=== PATIENT | female | born 1960 | race Caucasian/White ===

== ENCOUNTER 2018-07-01 00:07 | Emergency (ER) | payer OTHER ==
[~2018-07-01] VITALS: Ht 157.5 cm; Wt 85.7 kg
[~2018-07-01 00:07] MED LIST: ALEVE220 M1 PO; ASPIRIN EC81 MG PO; ATORVASTATIN CA20 MG PO; BACTRIM DS TAB1 EACH PO; CLINDAMYCIN HC150 MG PO; CYCLOBENZAPRINE10 MG PO; CYMBALTA30 MG PO; GLIPIZIDE10 MG PO; JANUVIA100 MG PO; LINZESS PO; TRAMADOL HCL100 MG PO
--- NOTE | 2018-07-01 01:00 | Diagnostic Imaging Report ---
EXAM: KNEE LEFT THREE VIEWS, AP, lateral and oblique INDICATION: Left knee pain without trauma COMPARISON: None FINDINGS: BONES: No acute fractures. JOINTS: No malalignment. Tricompartmental degenerative changes predominantly of the medial and patellofemoral compartments. SOFT TISSUES: Coarse calcification superior to the patella. IMPRESSION: Moderate to severe degenerative changes of the left knee. Signed by: Dr. Radha Wing M.D. on 07/01/2018 12:57 AM
== END 2018-07-01 01:30 | disposition home or self-care (01) ==
LOC: ER 00:07
DX: M25.562 Pain in left knee (principal); M17.12 Unilateral primary osteoarthritis, left knee; Z87.19 Personal history of other diseases of the digestive system

== ENCOUNTER 2021-09-04 14:42 | Inpatient (IN) | payer SELFPAY ==
[~2021-09-04] VITALS: Ht 162.6 cm; Wt 82.6 kg
[2021-09-04] MEDS ORDERED: Vancomycin IV 1 GM in SODIUM CHLORIDE 0.9% 250ML 250 ML IV ONE (18:30)
[2021-09-04] MEDS ORDERED: Vancomycin IV 1 GM VIAL ONE ×2 (18:49)
[2021-09-04] MEDS ORDERED: SODIUM CHLORIDE 0.9% 250ML 250 ML ONE (18:49)
[2021-09-04] MEDS ORDERED: PIPERACILLIN/TAZOBACTAM 3.375 GM VIAL ONE (18:49)
[2021-09-04] MEDS ORDERED: SODIUM CHLORIDE 0.9% 100 ML ONE (18:50)
[2021-09-04] MEDS ORDERED: DEXTROSE 50% SYRINGE 50 ML IV PRN (19:00)
[2021-09-04] MEDS ORDERED: HYDROCODONE/APAP 5MG-325MG TAB PO ONE (19:00)
[2021-09-04] MEDS ORDERED: SODIUM CHLORIDE FLUSH 10 ML SYR INJ PRN (19:00)
[2021-09-04] MEDS: PIPERACILLIN/TAZOBACTAM 3.375 GM in SODIUM CHLORIDE 0.9% 50ML 50 ML IV SCH (19:01)
[2021-09-04 21:00] VITALS: BP 126/75
[2021-09-04] MEDS: INSULIN LISPRO 100 UNIT/1 ML 3ML VIAL SQ SCH (21:40)
[2021-09-04] MEDS: HYDROMORPHONE 1MG/1ML INJ IV PRN (21:40)
[2021-09-05] VITALS (8 sets, daily range): BP systolic 102–138; BP diastolic 63–78
[2021-09-05] MEDS: HYDROMORPHONE 1MG/1ML INJ IV PRN ×7 (00:45→19:33)
[2021-09-05] MEDS ORDERED: SODIUM CHLORIDE 0.9% 250ML 250 ML ONE (00:51)
[2021-09-05] MEDS ORDERED: INFLUENZA VIRUS VAC SPLIT INJ 0.5 ML SYR IM SCH (01:11)
[2021-09-05] MEDS: PIPERACILLIN/TAZOBACTAM 3.375 GM in SODIUM CHLORIDE 0.9% 50ML 50 ML IV SCH ×4 (01:13→20:30)
[2021-09-05] MEDS: HYDROCODONE/APAP 5MG-325MG TAB PO PRN ×3 (02:00→18:12)
[2021-09-05 06:53] LABS: ALBUMIN/GLOBULIN RATIO 0.8 (0.8-2.0); ANION GAP 15.3 mmol/L (8-16); BASOPHILS # (AUTO) 0.1 (0.0-0.1); BASOPHILS % 0.8 % (0.0-1.0); CALCIUM 9.2 mg/dL (8.4-10.2); CHOL/HDL RATIO 3.6 (3.0-3.6); CREATININE, SERUM 0.87 mg/dL (0.57-1.11); EOSINOPHILS # (AUTO) 0.1 (0.0-0.4); EOSINOPHILS % 2.3 % (0.0-6.0); HEMATOCRIT 38.6 % (34.2-44.1); HEMOGLOBIN 12.5 g/dL (12.0-16.0); LYMPHOCYTES # (AUTO) 2.8 (1.0-3.2); LYMPHOCYTES % 45.9 % (18.0-39.1); MAGNESIUM 1.6 MG/DL (1.3-2.1); MEAN CORPUSCULAR HEMOGLOBIN 29.6 pg (28-32); MEAN CORPUSCULAR HGB CONC 32.4 g/dL (31-35); MEAN CORPUSCULAR VOLUME 91.3 fL (81-99); MONOCYTES # (AUTO) 0.7 (0.2-0.8); MONOCYTES % 11.9 % (4.4-11.3); NEUTROPHILS # (AUTO) 2.4 (2.1-6.9); NEUTROPHILS % 38.8 % (38.7-80.0); PHOSPHORUS 5.1 MG/DL (2.3-4.7); PLATELET COUNT 225 x10e3/uL (140-360); POTASSIUM 4.3 mmol/L (3.5-5.1); RED BLOOD COUNT 4.23 x10e6/uL (3.6-5.1); RED CELL DISTRIBUTION WIDTH 12.7 % (11.7-14.4)
[2021-09-05 07:18] LABS: THYROID STIMULATING HORMONE 1.741 uIU/mL (0.350-4.940)
[2021-09-05] MEDS: INSULIN LISPRO 100 UNIT/1 ML 3ML VIAL SQ SCH ×4 (07:42→20:31)
[2021-09-05] MEDS: Vancomycin IV 500 MG in SODIUM CHLORIDE 0.9% 100 ML IV SCH ×2 (10:22→21:48)
[2021-09-05] MEDS: FAMOTIDINE 20 MG TAB PO SCH ×2 (13:15→14:45)
[2021-09-05] MEDS ORDERED: GADOBENATE DIMEGLUMINE 1 ML IV ONE (13:39)
[2021-09-05] MEDS: ATORVASTATIN 40 MG TAB PO SCH (20:40)
[2021-09-05] MEDS: ENOXAPARIN 30 MG/0.3 ML SYR SC SCH (20:40)
[2021-09-06] VITALS (8 sets, daily range): BP systolic 113–141; BP diastolic 65–84
[2021-09-06] MEDS: PIPERACILLIN/TAZOBACTAM 3.375 GM in SODIUM CHLORIDE 0.9% 50ML 50 ML IV SCH ×3 (01:54→14:36)
[2021-09-06] MEDS: HYDROCODONE/APAP 5MG-325MG TAB PO PRN ×2 (01:58→08:13)
[2021-09-06] MEDS: ONDANSETRON HCL INJ 2MG/ML 2ML 2 MG/ML VIAL IV PRN ×2 (01:58→10:28)
[2021-09-06] MEDS: HYDROMORPHONE 1MG/1ML INJ IV PRN ×2 (04:06→18:01)
[2021-09-06 06:12] LABS: BASOPHILS # (AUTO) 0.1 (0.0-0.1); BASOPHILS % 0.6 % (0.0-1.0); EOSINOPHILS # (AUTO) 0.1 (0.0-0.4); EOSINOPHILS % 1.4 % (0.0-6.0); HEMATOCRIT 35.5 % (34.2-44.1); HEMOGLOBIN 11.3 g/dL (12.0-16.0); LYMPHOCYTES # (AUTO) 2.1 (1.0-3.2); LYMPHOCYTES % 26.7 % (18.0-39.1); MEAN CORPUSCULAR HEMOGLOBIN 29.1 pg (28-32); MEAN CORPUSCULAR HGB CONC 31.8 g/dL (31-35); MEAN CORPUSCULAR VOLUME 91.5 fL (81-99); MONOCYTES # (AUTO) 0.6 (0.2-0.8); MONOCYTES % 7.5 % (4.4-11.3); NEUTROPHILS % 63.5 % (38.7-80.0); PLATELET COUNT 193 x10e3/uL (140-360); RED BLOOD COUNT 3.88 x10e6/uL (3.6-5.1); RED CELL DISTRIBUTION WIDTH 12.4 % (11.7-14.4)
[2021-09-06 06:18] LABS: ALBUMIN 2.7 g/dL (3.5-5.0); ALBUMIN/GLOBULIN RATIO 0.7 (0.8-2.0); ANION GAP 13.9 mmol/L (8-16); CALCIUM 8.8 mg/dL (8.4-10.2); CREATININE, SERUM 0.75 mg/dL (0.57-1.11); POTASSIUM 4.9 mmol/L (3.5-5.1)
[2021-09-06] MEDS: INSULIN LISPRO 100 UNIT/1 ML 3ML VIAL SQ SCH ×4 (07:30→20:31)
[2021-09-06] MEDS: FAMOTIDINE 20 MG TAB PO SCH (08:12)
[2021-09-06] MEDS: DULOXETINE HCL 30 MG DELAYED RELEASE PO SCH (08:12)
[2021-09-06] MEDS: ENOXAPARIN 30 MG/0.3 ML SYR SC SCH ×2 (08:12→20:30)
[2021-09-06] MEDS: GLIPIZIDE 5 MG TAB PO SCH (08:12)
[2021-09-06] MEDS: Vancomycin IV 500 MG in SODIUM CHLORIDE 0.9% 100 ML IV SCH (10:28)
[2021-09-06] MEDS: COLLAGENASE 5 GM TUBE TOP SCH (11:44)
[2021-09-06] MEDS ORDERED: PROMETHAZINE 12.5MG/ NACL 0.9% 12.5 MG/50 ML BAG IV PRN (11:45)
[2021-09-06] MEDS: ATORVASTATIN 40 MG TAB PO SCH (20:30)
[2021-09-06] MEDS ORDERED: Vancomycin IV 1 GM in SODIUM CHLORIDE 0.9% 250ML 250 ML IV SCH (21:00)
[2021-09-06] MEDS ORDERED: INSULIN GLARGINE 100 UNITS/ML VIAL SQ SCH (21:00)
[2021-09-07] VITALS: BP 142/69
[2021-09-07] MEDS ORDERED: DOXYCYCLINE HY100 MG PO (00:20)
[2021-09-07] MEDS ORDERED: LANTUS 3ML100 UNITS/ IJ (00:29)
[2021-09-07] MEDS ORDERED: HUMALOG MI100 UNIT/2 SQ (00:30)
[2021-09-07] MEDS: HYDROCODONE/APAP 5MG-325MG TAB PO PRN ×2 (01:11→07:54)
[2021-09-07 04:46] VITALS: BP 118/60
[2021-09-07 05:45] LABS: BASOPHILS % 0.5 % (0.0-1.0); EOSINOPHILS # (AUTO) 0.1 (0.0-0.4); EOSINOPHILS % 1.1 % (0.0-6.0); HEMATOCRIT 34.7 % (34.2-44.1); HEMOGLOBIN 11.4 g/dL (12.0-16.0); LYMPHOCYTES # (AUTO) 1.9 (1.0-3.2); LYMPHOCYTES % 32.7 % (18.0-39.1); MEAN CORPUSCULAR HEMOGLOBIN 29.5 pg (28-32); MEAN CORPUSCULAR HGB CONC 32.9 g/dL (31-35); MEAN CORPUSCULAR VOLUME 89.9 fL (81-99); MONOCYTES # (AUTO) 0.6 (0.2-0.8); MONOCYTES % 9.8 % (4.4-11.3); NEUTROPHILS # (AUTO) 3.2 (2.1-6.9); NEUTROPHILS % 55.5 % (38.7-80.0); PLATELET COUNT 187 x10e3/uL (140-360); RED BLOOD COUNT 3.86 x10e6/uL (3.6-5.1); RED CELL DISTRIBUTION WIDTH 12.1 % (11.7-14.4)
[2021-09-07 06:10] LABS: ALBUMIN 2.8 g/dL (3.5-5.0); ALBUMIN/GLOBULIN RATIO 0.7 (0.8-2.0); ANION GAP 13.3 mmol/L (8-16); CALCIUM 8.7 mg/dL (8.4-10.2); CREATININE, SERUM 0.61 mg/dL (0.57-1.11); POTASSIUM 4.3 mmol/L (3.5-5.1)
[2021-09-07 07:49] VITALS: BP 133/75
[2021-09-07] MEDS: FAMOTIDINE 20 MG TAB PO SCH (07:54)
[2021-09-07] MEDS: DULOXETINE HCL 30 MG DELAYED RELEASE PO SCH (07:54)
[2021-09-07] MEDS: GLIPIZIDE 5 MG TAB PO SCH (07:54)
[2021-09-07] MEDS: ENOXAPARIN 30 MG/0.3 ML SYR SC SCH (07:56)
[2021-09-07] MEDS: COLLAGENASE 5 GM TUBE TOP SCH (08:15)
[2021-09-07] MEDS: INSULIN LISPRO 100 UNIT/1 ML 3ML VIAL SQ SCH ×2 (08:16→11:32)
[2021-09-07] MEDS ORDERED: DOXYCYCLINE HYCLATE TABLET 100 MG TAB PO SCH (09:00)
[2021-09-07 09:13] VITALS: BP_SYST 133
[2021-09-07 11:06] VITALS: BP 122/73
[2021-09-07] MEDS ORDERED: METFORMIN HCL500 MG PO (12:10)
[2021-09-07] MEDS ORDERED: HYDROCODON-ACE1 EA11 PO (12:12)
[2021-09-07] MEDS ORDERED: ONDANSETRON HCL 4 MG ORAL DISINTEGRATING TAB PO PRN (12:30)
== END 2021-09-07 13:40 | disposition home or self-care (01) | DRG 638 ==
LOC: FSED 14:45 → ERHOLD 18:51 → MED/SURG3 21:09
PROVIDERS: ADMIT Internal Medicine; ATTEND Internal Medicine
DX: E11.621 Type 2 diabetes mellitus with foot ulcer (principal); L03.115 Cellulitis of right lower limb; L97.519 Non-pressure chronic ulcer of other part of right foot with unspecified severity; Z86.14 Personal history of Methicillin resistant Staphylococcus aureus infection; Z90.49 Acquired absence of other specified parts of digestive tract; Z88.1 Allergy status to other antibiotic agents; Z88.5 Allergy status to narcotic agent; T38.3X6A Underdosing of insulin and oral hypoglycemic [antidiabetic] drugs, initial encounter; Z91.120 Patient's intentional underdosing of medication regimen due to financial hardship; E78.5 Hyperlipidemia, unspecified; F41.9 Anxiety disorder, unspecified; F32.A Depression, unspecified; Z20.822 Contact with and (suspected) exposure to COVID-19; Z79.4 Long term (current) use of insulin; Z79.84 Long term (current) use of oral hypoglycemic drugs
CPT/HCPCS: 36415; 80053; 80061; 80202; 82948; 83036; 83735; 84100; 84443; 85025; 87040; 93925; 96372; 99251; 99284; J1170; J1650; J2405; J2543; J3370; J7050; U0002

== ENCOUNTER 2023-01-17 13:18 | Emergency (ER) | payer SELFPAY ==
[~2023-01-17] VITALS: Ht 160 cm; Wt 88.6 kg
[~2023-01-17 13:18] MED LIST changes: +DOXYCYCLINE HY100 MG PO; +HUMALOG MI100 UNIT/2 SQ; +HYDROCODON-ACE1 EA11 PO; +LANTUS 3ML100 UNITS/ IJ; +METFORMIN HCL500 MG PO
[2023-01-17] MEDS ORDERED: DIPHENHYDRAMINE25 M1 PO (13:43)
[2023-01-17] MEDS ORDERED: PLAVIX75 MG PO (13:43)
[2023-01-17] MEDS ORDERED: NEURONTIN300 MG PO (13:43)
[2023-01-17] MEDS ORDERED: HYDROCODONE/APAP 5MG-325MG TAB PO ONE (14:15)
[2023-01-17] MEDS ORDERED: DULOXETINE HCL60 MG PO (14:20)
[2023-01-17] MEDS ORDERED: ATORVASTATIN CA40 MG PO (14:22)
[2023-01-17] MEDS ORDERED: GABAPENTIN600 MG PO (14:25)
[2023-01-17] MEDS ORDERED: HYDROCODONE/APAP 5MG-325MG TAB ONE (14:32)
== END 2023-01-17 14:51 | disposition home or self-care (01) ==
LOC: FSED 13:25
DX: E11.40 Type 2 diabetes mellitus with diabetic neuropathy, unspecified (principal); E78.5 Hyperlipidemia, unspecified; I73.9 Peripheral vascular disease, unspecified; F32.A Depression, unspecified; F41.9 Anxiety disorder, unspecified; G89.29 Other chronic pain; Z76.0 Encounter for issue of repeat prescription; F17.210 Nicotine dependence, cigarettes, uncomplicated; Z87.19 Personal history of other diseases of the digestive system
CPT/HCPCS: 99283